=== PATIENT | female | born 1970 | race Caucasian/White ===

== ENCOUNTER 2018-01-21 18:09 | Inpatient (IN) ==
[2018-01-22] MEDS ORDERED: Acetaminophen 325 MG Tablet PO PRN (00:39)
--- NOTE | 2018-01-22 00:49 | P.HPIM ---
History of Present Illness Primary Care Physician: UNKNOWN History of Present Illness: 47 y/o female with a history of HTN presented to the ED with complaints of tarry stools and epigastric pain. Patient states since Friday she has been feeling weak with sob, tarry stools and epigastric pain. She states the pain is a 8/10, burning sensation in her epigastric region with associated nausea and no radiation, worse with food. Patient denies any fevers, chills, cough or sputum production. Review of Systems All other systems reviewed negative except as stated in HPI PMFSH - History History Provided By: Patient - Medical History Medical History: Medical History (Last Reviewed 01/21/18 @ 18:38 by SHALINI Rivas) Hypertension - Surgical History Surgical History: Surgical History (Last Updated 01/21/18 @ 18:25 by Rabia Tatum RN) Hx of appendectomy Hx of tonsillectomy - Family History Family History: Family History (Last Updated 01/22/18 @ 01:12 by HEATHER Xiong) Father Hypertension - Tobacco History Second Hand Smoke Exposure: No Smoking Status: Former smoker Tobacco Type: Cigarettes - Alcohol History How Often Do You Have a Drink Containing Alcohol: Never - Substance Use History Substance History: No History of Abuse Medications and Allergies Active Medications: Active Medications Acetaminophen (Tylenol) 650 mg PO Q4H PRN PRN Reason: Temp > 100.4 Albuterol (Duoneb Neb (Prn)) 1 ampul NEB Q4HR NEB PRN PRN Reason: SHORTNESS OF BREATH Levofloxacin/Dextrose (Levaquin 750 Mg Premix Inj) 150 mls @ 100 mls/hr IV.SIG Q24H ANUJA Sodium Chloride (Ns Inj) 1,000 mls @ 100 mls/hr IV.CONT .Q10H ANUJA Levofloxacin (Levaquin) 750 mg PO DAILY ANUJA Ondansetron HCl (Zofran Inj) 4 mg IV.PUSH Q6H PRN PRN Reason: NAUSEA OR VOMITING Pantoprazole Sodium (Protonix Inj) 40 mg IV.PUSH Q12H ANUJA Allergies Allergy/AdvReac Type Severity Reaction Status Date / Time No Known Allergies Allergy Unverified 01/21/18 18:23 Home Medications Medication Instructions Recorded Confirmed Type triamterene-hydrochlorothiazid 1 cap PO DAILY 01/21/18 01/21/18 History Exam Vital signs: Intake & Output 01/21/18 01/21/18 01/22/18 06:59 18:59 06:59 Weight 80.739 kg Narrative: GENERAL: This is a well-nourished, well-developed patient, in no apparent distress. CARDIOVASCULAR: Regular rate and rhythm without murmurs, gallops, or rubs. RESPIRATORY: Clear to auscultation. Breath sounds equal bilaterally. No wheezes , rales, or rhonchi. GASTROINTESTINAL: Abdomen soft, epigastic tenderness, nondistended. Normal active bowel sounds MUSCULOSKELETAL: Extremities without clubbing, cyanosis, or edema. NEURO: Alert & Oriented x4 to person, place, time, situation. Moves all ext x4 Caprini VTE Risk Assessment Caprini VTE Risk Assessment: No/Low Risk (score <= 1) Caprini Risk Assessment Model: Point Value = 1 Point Value = 2 Point Value = 3 Point Value = 5 Age 41-60 Minor surgery BMI > 25 kg/m2 Swollen legs Varicose veins or History of unexplained or recurrent spontaneous Oral contraceptives or hormone replacement Sepsis (< 1 month) Serious lung disease, including pneumonia (< 1 month) Abnormal pulmonary function Acute myocardial infarction Congestive heart failure (< 1 month) History of inflammatory bowel disease Medical patient at bed rest Age 61-74 Arthroscopic surgery Major open surgery (> 45 min) Laparoscopic surgery (> 45 min) Malignancy Confined to bed (> 72 hours) Immobilizing plaster cast Central venous access Age >= 75 History of VTE Family history of VTE Factor V Leiden Prothrombin [id number] Lupus anticoagulant Anticardiolipin antibodies Elevated serum homocysteine Heparin-induced thrombocytopenia Other congenital or acquired thrombophilia Stroke (< 1 month) Elective arthroplasty Hip, pelvis, or leg fracture Acute spinal cord injury (< 1 month) Prophylaxis Regimen: Total Risk Factor Score Risk Level Prophylaxis Regimen 0-1 Low Early ambulation 2 Moderate Order ONE of the following: *Sequential Compression Device (SCD) *Heparin 5000 units SQ BID 3-4 Higher Order ONE of the following medications: *Heparin 5000 units SQ TID *Enoxaparin/Lovenox 40 mg SQ daily (WT < 150 kg, CrCl > 30 mL/min) *Enoxaparin/Lovenox 30 mg SQ daily (WT < 150 kg, CrCl > 10-29 mL/min) *Enoxaparin/Lovenox 30 mg SQ BID (WT < 150 kg, CrCl > 30 mL/min) AND/OR *Sequential Compression Device (SCD) 5 or more Highest Order ONE of the following medications: *Heparin 5000 units SQ TID (Preferred with Epidurals) *Enoxaparin/Lovenox 40 mg SQ daily (WT < 150 kg, CrCl > 30 mL/min) *Enoxaparin/Lovenox 30 mg SQ daily (WT < 150 kg, CrCl > 10-29 mL/min) *Enoxaparin/Lovenox 30 mg SQ BID (WT < 150 kg, CrCl > 30 mL/min) AND *Sequential Compression Device (SCD) Assessment and Plan - Plan GI bleed, Hemoccult positive HGB 9.8 -Serial H&H -Protonix IV -Consult GI for evaluation -Pain management with IV morphine -IVF Pneumonia, right Abdominal CT reviewed and shows a focal consolidation at the posterior right lower lobe -IV antibiotics Levaquin, transition to PO once no longer npo -Duonebs as needed Hypertension, chronic -Resume home medications, monitor vitals DVT prophylaxis: SCDs Discussed Condition With: patient and rn H&P: Quality - VTE Deep Vein Thrombosis/Pulmonary Embolism Present on Admission: No
[2018-01-22] MEDS: Sod Chloride 0.9% Inj 1,000 ML IV.CONT SCH ×3 (01:47→23:51)
[2018-01-22] MEDS: Morphine Inj 4 MG/ML Vial IV.PUSH PRN ×3 (01:49→20:50)
[2018-01-22 05:17] LABS: Baso % (Auto) 0.3 % (0.0-2.0); Eos # (Auto) 0.1 th/mm3 (0.0-0.4); Eos % (Auto) 1.7 % (0.0-4.0); Hematocrit 21.8 % (35.0-46.0); Hemoglobin 7.6 gm/dL (11.6-15.3); Lymph # (Auto) 2.6 th/mm3 (1.0-4.8); Lymph % (Auto) 41.6 % (9.0-44.0); Mean Corpuscular HGB Conc 34.7 % (32.0-36.0); Mean Corpuscular Hemoglobin 31.4 pg (27.0-34.0); Mean Corpuscular Volume 90.5 fL (80.0-100.0); Mean Platelet Volume 8.2 fL (7.0-11.0); Mono # (Auto) 0.5 th/mm3 (0.0-0.9); Mono % (Auto) 7.4 % (0.0-8.0); Neut # (Auto) 3.1 th/mm3 (1.8-7.7); Platelet Count 197 th/mm3 (150-450); Red Blood Count 2.41 mil/mm3 (4.00-5.30); Red Cell Distribution Width 13.5 % (11.6-17.2); White Blood Count 6.3 th/mm3 (4.0-11.0)
[2018-01-22] MEDS: Pantoprazole Inj 40 MG Vial IV.PUSH SCH ×2 (05:20→17:42)
[2018-01-22 05:44] LABS: Calcium 7.2 mg/dL (8.5-10.1); Carbon Dioxide 24.3 meq/L (21.0-32.0)
[2018-01-22 06:05] LABS: Potassium 2.9 meq/L (3.5-5.1)
[2018-01-22 06:21] LABS: Total Protein 5.4 g/dL (6.4-8.2)
[2018-01-22] MEDS: Potassium Chlor 20 mEq Premix 20 MEQ/100 ML PIGGYBACK IV.SIG SCH ×2 (06:56→10:11)
--- NOTE | 2018-01-22 08:19 | P.CONGI ---
History of Present Illness Consult date: 01/22/18 Consult reason: GIB Chief complaint: GI Bleed, Community Acquired Pneumonia History of Present Illness: This is a 47 yo F with PMH significant for hypertension. Pt presented to the [place] ER yesterday with complaints of black, tarry stools with epigastric pain and nausea. Pt reports she began feeling ill on Friday afternoon when she was at [facility] in [place]. Symptoms began with nausea and an uneasy feeling in her stomach. She also reports significant diaphoresis. She thought she was overheated so she went back to the hotel to cool off, however, she states symptoms did not improve. The next day she began having multiple episodes of diarrhea, states black stools and then for the next two days her stools continued to be black but became more formed. She also reports epigastric burning sensation, states aching and reports a bloated sensation, constant. Denies any emesis. Pt denies history of GIB. Does not take blood thinners. She reports taking 2 Ibuprofen on Friday but denies NSAID use other than occasionally when she has a headache. Denies ETOH and smoking. Has never had EGD or colonoscopy. <Cayla Anaya - Last Filed: 01/22/18 08:09> Review of Systems Constitutional: Reports chills, Reports excessive sweating Cardiovascular: Denies chest pain Respiratory: Denies shortness of breath with activity Gastrointestinal: Reports abdominal pain, Reports black, tarry stools, Reports loose stools, Reports nausea, Denies vomiting, Denies vomiting blood <Cayla Anaya - Last Filed: 01/22/18 08:09> [facility] - History History Provided By: Patient - Medical History Medical History: Medical History (Last Reviewed 01/21/18 @ 18:38 by SHALINI Rivas) Hypertension - Surgical History Surgical History: Surgical History (Last Updated 01/21/18 @ 18:25 by Rabia Tatum RN) Hx of appendectomy Hx of tonsillectomy - Family History Family History: Family History (Last Updated 01/22/18 @ 01:12 by HEATHER Xiong) Father Hypertension - Tobacco History Second Hand Smoke Exposure: No Smoking Status: Former smoker Tobacco Type: Cigarettes - Alcohol History How Often Do You Have a Drink Containing Alcohol: Never - Substance Use History Substance History: No History of Abuse - Travel History Recent Travel in the [place] Within the Last 8 Weeks: No Recent Travel Out of the Country Within the Last 8 Weeks: No <Cayla Anaya - Last Filed: 01/22/18 08:09> - Medical History Medical History: Medical History (Last Reviewed 01/21/18 @ 18:38 by SHALINI Rivas) Hypertension - Surgical History Surgical History: Surgical History (Last Updated 01/21/18 @ 18:25 by Rabia Tatum RN) Hx of appendectomy Hx of tonsillectomy - Family History Family History: Family History (Last Updated 01/22/18 @ 01:12 by HEATHER Xiong) Father Hypertension <Luca Grajeda - Last Filed: 01/22/18 15:21> Medications and Allergies Active Medications: Active Medications Acetaminophen (Tylenol) 650 mg PO Q4H PRN PRN Reason: Temp > 100.4 Albuterol (Duoneb Neb (Prn)) 1 ampul NEB Q4HR NEB PRN PRN Reason: SHORTNESS OF BREATH Levofloxacin/Dextrose (Levaquin 750 Mg Premix Inj) 150 mls @ 100 mls/hr IV.SIG Q24H LIONEL Sodium Chloride (Ns Inj) 1,000 mls @ 100 mls/hr IV.CONT .Q10H LIONEL Last Admin: 01/22/18 01:47 Dose: 100 mls/hr Potassium Chloride (Kcl 20 Meq Premix Inj) 20 meq in 100 mls @ 50 mls/hr IV.SIG Q2H LIONEL Stop: 01/22/18 10:29 Last Admin: 01/22/18 06:56 Dose: 50 mls/hr Morphine Sulfate (Morphine Inj) 2 mg IV.PUSH Q3H PRN PRN Reason: ABDOMINAL PAIN Last Admin: 01/22/18 01:49 Dose: 2 mg Ondansetron HCl (Zofran Inj) 4 mg IV.PUSH Q6H PRN PRN Reason: NAUSEA OR VOMITING Pantoprazole Sodium (Protonix Inj) 40 mg IV.PUSH Q12H LIONEL Last Admin: 01/22/18 05:20 Dose: 40 mg Triamterene/HCTZ (Dyazide 37.5/25 Mg) 1 cap PO DAILY LIONEL <Cayla Anaya - Last Filed: 01/22/18 08:09> Active Medications: Active Medications Acetaminophen (Tylenol) 650 mg PO Q4H PRN PRN Reason: Temp > 100.4 Albuterol (Duoneb Neb (Prn)) 1 ampul NEB Q4HR NEB PRN PRN Reason: SHORTNESS OF BREATH Albuterol (Duoneb Neb (Lionel)) 1 ampul NEB Q6HR WHILE AWAKE NEB [facility] Last Admin: 01/22/18 13:20 Dose: Not Given Chlorhexidine Gluconate (Chlorhexidine 2% Cloth) 3 pack [facility] Stop: 01/25/18 10:38 Last Admin: 01/22/18 12:02 Dose: Not Given Guaifenesin (Mucinex Er) 600 mg PO BID [facility] Last Admin: 01/22/18 13:36 Dose: Not Given Levofloxacin/Dextrose (Levaquin 750 Mg Premix Inj) 150 mls @ 100 mls/hr IV.SIG Q24H [facility] Last Infusion: 01/22/18 10:09 Dose: Infused Sodium Chloride (Ns Inj) 1,000 mls @ 100 mls/hr IV.CONT .Q10H [facility] Last Infusion: 01/22/18 13:35 Dose: 100 mls/hr Lactated Ringer's (Lr 1000 Ml Inj) 1,000 mls @ 30 mls/hr IV.SIG .Q24H [facility] Stop: 01/25/18 10:38 Last Admin: 01/22/18 12:01 Dose: 30 mls/hr Sodium Chloride (Ns Inj) 500 mls @ 30 mls/hr IV.SIG .Q10H [facility] Stop: 01/25/18 10:38 Metoprolol Tartrate (Lopressor) 25 mg PO CENTER REP [facility] Stop: 01/25/18 10:38 Last Admin: 01/22/18 12:02 Dose: Not Given Morphine Sulfate (Morphine Inj) 2 mg IV.PUSH Q3H PRN PRN Reason: ABDOMINAL PAIN Last Admin: 01/22/18 08:35 Dose: 2 mg Ondansetron HCl (Zofran Inj) 4 mg IV.PUSH Q6H PRN PRN Reason: NAUSEA OR VOMITING Pantoprazole Sodium (Protonix Inj) 40 mg IV.PUSH Q12H [facility] Last Admin: 01/22/18 05:20 Dose: 40 mg Polyethylene Glycol/Electrolytes (Colyte Liq) 4,000 ml PO ONCE ONE Stop: 01/22/18 15:11 Povidone Iodine (Betadine 5% Antisepsis Kit) 1 applicatio EACH [facility] Stop: 01/25/18 10:38 Last Admin: 01/22/18 12:02 Dose: Not Given Triamterene/HCTZ (Dyazide 37.5/25 Mg) 1 cap PO DAILY [facility] <Luca Grajeda - Last Filed: 01/22/18 15:21> Allergies Allergy/AdvReac Type Severity Reaction Status Date / Time No Known Allergies Allergy Unverified 01/21/18 18:23 Home Medications Medication Instructions Recorded Confirmed Type triamterene-hydrochlorothiazid 1 cap PO DAILY 01/21/18 01/21/18 History Exam Vital signs: Vital Signs 01/22/18 03:17 01/22/18 04:00 01/22/18 08:03 Temperature 98.6 F Pulse Rate 71 77 Respiratory Rate 15 19 Blood Pressure 91/54 L Pulse Oximetry 93 L Intake & Output 01/21/18 01/22/18 01/22/18 18:59 06:59 18:59 Weight 80.739 kg Other: Date of Last Bowel Movement 01/21/18 Weight On Admission 80.739 kg - Constitutional no acute distress - Routine HEENT Exam Head: Present: normocephalic, atraumatic - Routine Respiratory Exam Absent: accessory muscle use - Routine Cardiovascular Exam Present: RRR - Routine Abdominal Exam Present: soft, normoactive bowel sounds, tenderness (epigastric tenderness ). Absent: distended - Routine Skin Exam Present: dry, warm - Routine Neurological Exam Present: alert, oriented X3 <Cayla Anaya - Last Filed: 01/22/18 08:09> Vital signs: Vital Signs 01/22/18 03:17 01/22/18 04:00 01/22/18 08:00 Temperature 98.6 F 98.6 F Pulse Rate 71 68 Respiratory Rate 15 19 16 Blood Pressure 91/54 L 99/64 L Pulse Oximetry 93 L 94 L 01/22/18 08:03 01/22/18 14:06 01/22/18 14:20 Temperature 99 F 98.6 F Pulse Rate 77 75 73 Respiratory Rate 16 16 Blood Pressure 109/67 111/62 Pulse Oximetry 96 96 01/22/18 14:21 Temperature 98.6 F Pulse Rate Respiratory Rate 18 Blood Pressure 112/63 Pulse Oximetry 100 Intake & Output 01/21/18 01/22/18 01/22/18 18:59 06:59 18:59 Intake Total 250 / 250 Balance 250 / 250 Weight 80.739 kg Intake: IV 250 / 250 NS Inj 1,000 ML @ 100 mls/hr IV 0 / 0 .CONT .Q10H LIONEL Rx#:[id number] Levaquin 750 mg Premix Inj 150 150 / 150 ML @ 100 mls/hr IV.SIG Q24H LIONEL Rx#:[id number] KCl 20 mEq Premix Inj 20 meq In 100 / 100 100 ml @ 50 mls/hr IV.SIG Q2H LIONEL Rx#:[id number] Intake (Blood Product) Amt 0 / 0 Rbc As-3 Leukoreduced Unit 0 / 0 [id number] Other: Date of Last Bowel Movement 01/21/18 Weight On Admission 80.739 kg <Luca Grajeda - Last Filed: 01/22/18 15:21> Results - Labs CBC & Chem 7: 01/22/18 04:10 01/22/18 04:10 Labs: Laboratory Results - last 24 hr 01/22/18 01/22/18 04:10 04:10 WBC 6.3 RBC 2.41 L Hgb 7.6 L D Hct 21.8 L MCV 90.5 MCH 31.4 MCHC 34.7 RDW 13.5 Plt Count 197 MPV 8.2 Neut % (Auto) 49.0 Lymph % (Auto) 41.6 [place] % (Auto) 7.4 Eos % (Auto) 1.7 Baso % (Auto) 0.3 Neut # (Auto) 3.1 Lymph # (Auto) 2.6 [place] # (Auto) 0.5 Eos # (Auto) 0.1 Baso # (Auto) 0.0 WBC Differential . Differential Comment Auto diff final Sodium 142 Potassium 2.9 L* Chloride 110 H Carbon Dioxide 24.3 Anion Gap 8 BUN 14 Creatinine 0.77 Estimated GFR 81 L Random Glucose 83 Calcium 7.2 L* D Prot Corrected Calcium 8.1 L Total Protein 5.4 L D <Cayla Anaya - Last Filed: 01/22/18 08:09> - Labs CBC & Chem 7: 01/22/18 04:10 01/22/18 13:19 Labs: Laboratory Results - last 24 hr 01/22/18 01/22/18 01/22/18 04:10 04:10 13:19 WBC 6.3 RBC 2.41 L Hgb 7.6 L D Hct 21.8 L MCV 90.5 MCH 31.4 MCHC 34.7 RDW 13.5 Plt Count 197 MPV 8.2 Neut % (Auto) 49.0 Lymph % (Auto) 41.6 [place] % (Auto) 7.4 Eos % (Auto) 1.7 Baso % (Auto) 0.3 Neut # (Auto) 3.1 Lymph # (Auto) 2.6 [place] # (Auto) 0.5 Eos # (Auto) 0.1 Baso # (Auto) 0.0 WBC Differential . Differential Comment Auto diff final Sodium 142 Potassium 2.9 L* Chloride 110 H Carbon Dioxide 24.3 Anion Gap 8 BUN 14 Creatinine 0.77 Estimated GFR 81 L Random Glucose 83 Calcium 7.2 L* D Prot Corrected Calcium 8.1 L Total Protein 5.4 L D TSH Free T4 MTS Gel Crossmatch See Detail 01/22/18 13:19 WBC RBC Hgb Hct MCV MCH MCHC RDW Plt Count MPV Neut % (Auto) Lymph % (Auto) [place] % (Auto) Eos % (Auto) Baso % (Auto) Neut # (Auto) Lymph # (Auto) [place] # (Auto) Eos # (Auto) Baso # (Auto) WBC Differential Differential Comment Sodium 142 Potassium 3.7 D Chloride 112 H Carbon Dioxide 21.2 Anion Gap 9 BUN 11 Creatinine 0.62 Estimated GFR Greater than 89 Random Glucose 85 Calcium 7.6 L Prot Corrected Calcium Total Protein TSH 1.260 Free T4 1.10 MTS Gel Crossmatch <Luca Grajeda - Last Filed: 01/22/18 15:21> Assessment and Plan - Plan Assessment: - Anemia secondary to acute GI blood loss 7.6/21.8, normocytic Pt reports symptoms began on Friday afternoon with nausea and upset stomach. Denies emesis. Began having black, tarry stools on Friday. Initially was diarrhea then became more formed on Friday and Friday. Last BM was yesterday morning. Denies history of GIB. Took 2 Excedrin on Friday but denies frequent NSAID use. Denies ETOH and smoking. Does not take blood thinners. Denies family history of GI issues. Has never had EGD or colonoscopy. Ct abdomen and pelvis WO IV contrast reveals no acute abdominal abnormalities Plan: EGD today Obtain consent Keep NPO Protonix Monitor H/H Electrolyte replacement per primary team Further recommendations to follow Pt has been seen and examined by myself and Dr. Grajeda and this note is written on his behalf <Cayla Anaya - Last Filed: 01/22/18 08:09> - Plan Seen and examined with [employer], EGd planned today, if -ve colonoscopy tomorrow. NPO for now, transfuse 2 units of PRBC. Thank you The exam, history, and the medical decision-making described in the above note were completed with the assistance of the mid-level provider. I reviewed and agree with the findings presented. I attest that I had a buan-[id number] encounter with the patient on the same day, and personally performed and documented my assessment and findings in the medical record. <Luca Grajeda - Last Filed: 01/22/18 15:21>
[2018-01-22] MEDS ORDERED: levoFLOXacin 750 MG Tablet PO SCH (09:00)
[2018-01-22] MEDS ORDERED: Chlorhexidine Gluconate 2% 1 Pack (2 Cloths) TOPICAL SCH (10:45)
[2018-01-22] MEDS ORDERED: Metoprolol Tartrate 25 MG Tablet PO SCH (10:45)
[2018-01-22] MEDS ORDERED: Sodium Chlor 0.9% Inj 500 ML IV.SIG SCH (11:00)
--- NOTE | 2018-01-22 11:31 | P.PNIM ---
Subjective Interval history: 47 y/o female with a history of HTN presented to the ED with complaints of tarry stools and epigastric pain. Patient states since Friday she has been feeling weak with sob, tarry stools and epigastric pain. She states the pain is a 8/10, burning sensation in her epigastric region with associated nausea and no radiation, worse with food. Patient denies any fevers, chills, cough or sputum production. 01-22 PATIENT TO HAVE EGD TODAY CONTINUE ANTIBIOTICS REGARDING PNEUMONIA HOPEFULLY HOME TOMORROW ON PO ANTIBIOTICS Physical Exam Vital signs: Vital Signs 01/22/18 03:17 01/22/18 04:00 01/22/18 08:00 Temperature 98.6 F 98.6 F Pulse Rate 71 68 Respiratory Rate 15 19 16 Blood Pressure 91/54 L 99/64 L Pulse Oximetry 93 L 94 L 01/22/18 08:03 Temperature Pulse Rate 77 Respiratory Rate Blood Pressure Pulse Oximetry Intake & Output 01/21/18 01/22/18 01/22/18 18:59 06:59 18:59 Intake Total 250 / 250 Balance 250 / 250 Weight 80.739 kg Intake: IV 250 / 250 Levaquin 750 mg Premix Inj 150 150 / 150 ML @ 100 mls/hr IV.SIG Q24H ANUJA Rx#:[id number] KCl 20 mEq Premix Inj 20 meq In 100 / 100 100 ml @ 50 mls/hr IV.SIG Q2H ANUJA Rx#:[id number] Other: Date of Last Bowel Movement 01/21/18 Weight On Admission 80.739 kg Narrative: GENERAL: Awake alert and oriented 3 talkative and cooperative SKIN: Warm and dry. HEAD: Atraumatic. Normocephalic. EYES: Pupils equal and round. No scleral icterus. No injection or drainage. EOMI ENT: No nasal bleeding or discharge. Mucous membranes pink and moist. Tongue is midline NECK: Trachea midline. No JVD. Neck is supple CARDIOVASCULAR: Regular rate and rhythm. S1-S2 no S3 or S4 RESPIRATORY: No accessory muscle use. Clear to auscultation. Breath sounds equal bilaterally. GASTROINTESTINAL: Abdomen soft, non-tender, nondistended. Hepatic and splenic margins not palpable. Mild midepigastric tenderness MUSCULOSKELETAL: Extremities without clubbing, cyanosis, or edema. No obvious deformities. NEUROLOGICAL: Awake and alert. No obvious cranial nerve deficits. Motor grossly within normal limits. Five out of 5 muscle strength in the arms and legs. Normal speech. PSYCHIATRIC: Appropriate mood and affect; insight and judgment normal. Results - Labs CBC & Chem 7: 01/22/18 04:10 01/22/18 04:10 Laboratory Results - last 24 hr 01/22/18 01/22/18 04:10 04:10 WBC 6.3 RBC 2.41 L Hgb 7.6 L D Hct 21.8 L MCV 90.5 MCH 31.4 MCHC 34.7 RDW 13.5 Plt Count 197 MPV 8.2 Neut % (Auto) 49.0 Lymph % (Auto) 41.6 Luce % (Auto) 7.4 Eos % (Auto) 1.7 Baso % (Auto) 0.3 Neut # (Auto) 3.1 Lymph # (Auto) 2.6 Luce # (Auto) 0.5 Eos # (Auto) 0.1 Baso # (Auto) 0.0 WBC Differential . Differential Comment Auto diff final Sodium 142 Potassium 2.9 L* Chloride 110 H Carbon Dioxide 24.3 Anion Gap 8 BUN 14 Creatinine 0.77 Estimated GFR 81 L Random Glucose 83 Calcium 7.2 L* D Prot Corrected Calcium 8.1 L Total Protein 5.4 L D - Imaging INDICATIONS: Pneumonia. CLINICAL DATA: This is the patient's initial encounter. Patient reports that signs and symptoms have been present for 1 day and indicates a pain score of 4/ 10. MEDICAL/SURGICAL HISTORY: Hypertension. None. COMPARISON: No prior exams available for comparison. FINDINGS: A single AP view of the chest demonstrates the lungs to be symmetrically aerated without evidence of mass, infiltrate or effusion. The cardiomediastinal contours are unremarkable. Osseous structures are intact. CONCLUSION: No acute cardiopulmonary process. Electronically signed by: Bairon Cruz MD 01/21/2018 9:05 PM EDT EXAM DATE: 01/21/2018 8:01 PM EDT AGE/SEX: 47 years / Female INDICATIONS: Epigastric pain. CLINICAL DATA: This is the patient's initial encounter. Patient reports that signs and symptoms have been present for 4 - 6 days and indicates a pain score of 8/10. MEDICAL/SURGICAL HISTORY: Hypertension. Appendectomy. RADIATION DOSE: 15.54 CTDI (mGy) COMPARISON: No prior exams available for comparison. TECHNIQUE: Multiple contiguous axial images were obtained through the abdomen. Images were obtained using multiple row detector helical technique. Using automated exposure control and adjustment of the mA and/or kV according to patient size, radiation dose was kept as low as reasonably achievable to obtain optimal diagnostic quality images. DICOM format image data is available electronically for review and comparison. FINDINGS: Lower Lungs: There is a focal or consolidation at the posterior right lower lobe. Liver: The liver has a homogeneous density without space-occupying lesion. There is no dilation of the biliary tree. Spleen: Homogeneous density without enlargement. Pancreas: Unremarkable without mass or calcification. Kidneys: Normal in size and shape. No evidence of mass or hydronephrosis. Adrenal Glands: Unremarkable. Aorta: Atherosclerotic calcifications are seen. No aneurysm is present. Bowel/Mesentery: The bowel loops are grossly unremarkable. The cecum and sigmoid colon have a normal configuration. Clips are seen in the right lower quadrant. Abdominal Wall: Intact. Retroperitoneum: No evidence of adenopathy in the retrocrural, para-aortic, or deep pelvic regions. Bladder: Contours are smooth. Reproductive Organs: No abnormal masses or calcifications seen. The right ovary appears mildly prominent but within normal limits for size given the patient's age. Inguinal: The inguinal region is unremarkable without evidence of adenopathy. Bony Structures: Unremarkable. CONCLUSION: 1. Right lower lobe consolidation. 2. No acute intra-abdominal abnormality is seen. Assessment and Plan - Plan GI bleed, Hemoccult positive HGB 9.8 -Serial H&H -Protonix IV -Consult GI for evaluation -Pain management with IV morphine -IVF Pneumonia, right Abdominal CT reviewed and shows a focal consolidation at the posterior right lower lobe -IV antibiotics Levaquin, transition to PO once no longer npo -Duonebs as needed Hypertension, chronic -Resume home medications, monitor vitals Add Mucinex and DuoNeb's DVT prophylaxis: SCDs no Lovenox due to GI bleeding Code Status: Full code Discussed Condition With: RN and patient and case management Discharge Planning: Pending improvement hopefully home in the next 24-48
[2018-01-22] MEDS: guaiFENesin 600 MG ER Tablet PO SCH ×2 (13:36→20:50)
[2018-01-22 14:05] LABS: Anion Gap 9 meq/L (5-15); Blood Urea Nitrogen 11 mg/dL (7-18); Calcium 7.6 mg/dL (8.5-10.1); Carbon Dioxide 21.2 meq/L (21.0-32.0); Chloride 112 meq/L (98-107); Glomerular Filtration Rate Greater Than 89 mL/min (>89); Glucose,Random 85 mg/dL (74-106); Potassium 3.7 meq/L (3.5-5.1); Sodium 142 meq/L (136-145)
[2018-01-22] MEDS ORDERED: Lidocaine PF 1% Inj 5 ML Syringe INFILTRATN ONE (15:03)
--- NOTE | 2018-01-22 15:15 | GIPROC ---
[facility] [address] [facility]. [facility], [address] EGD PROCEDURE REPORT EXAM DATE: 01/22/2018 PATIENT NAME: Gillian Taylor MR #: [id number] BIRTHDATE: 1970 ATTENDING: Luca Grajeda MD ORDER #: [id number] RUBY DEVELOPER: Loretta Casas and Inna Guadarrama STATUS: inpatient INDICATIONS: The patient is a 47 yr old female here for an EGD due to iron deficiency anemia and melena PROCEDURE PERFORMED: EGD w/ biopsy MEDICATIONS: None and Per Anesthesia. TOPICAL ANESTHETIC: CONSENT: The patient understands the risks and benefits of the procedure and understands that these risks include, but are not limited to: sedation, allergic reaction, infection, perforation and/or bleeding. Alternative means of evaluation and treatment include, among others: physical exam, x-rays, and/or surgical intervention. The patient elects to proceed with this endoscopic procedure. medical equipment was checked for proper function. Hand hygiene and appropriate measures for infection prevention was taken. After the risks, benefits and alternatives of the procedure were thoroughly explained, Informed consent was verified, confirmed and timeout was successfully executed by the treatment team. The patient was anesthetized with topical anesthesia and the Pentax [id number] endoscope was introduced through the mouth and advanced to the second portion of the duodenum. Retroflexed views revealed no abnormalities The gastroscope was then slowly withdrawn and removed. ESOPHAGUS: The mucosa of the esophagus appeared normal. STOMACH: There was erythematous moderate gastritis in the gastric antrum. A biopsy was performed using cold forceps. Sample sent for histology. DUODENUM: Mild duodenal inflammation was found in the duodenal bulb. ADVERSE EVENTS: There were no complications. IMPRESSIONS: 1. The esophagus appeared normal 2. There was erythematous gastritis in the gastric antrum; biopsy was performed 3. Duodenal inflammation was found in the duodenal bulb 4. Retroflexed views revealed no abnormalities RECOMMENDATIONS: 1. Await biopsy results. Biopsy results will not be ready for 7-10 days. If you don't hear from us in two weeks, call our office for biopsy results. 2. Anti-reflux regimen 3. Continue PPI 4. Avoid NSAIDS 5. Colonoscopy PATIENT CONDITION: stable DISPOSITION: Inpatient REPEAT EXAM: Return 3 years EGD pending biopsy results Luca Grajeda MD eSigned: Luca Grajeda MD 01/22/2018 3:15 PM cc: PATIENT NAME: Gillian Taylor MR#: [id number]
[2018-01-22] MEDS ORDERED: PEG 3350/E-Lyte Soln 4000 ML Bottle PO ONE (16:00)
[2018-01-22 17:41] LABS: Hemoglobin A1c 5.4 % (4.3-6.0)
[2018-01-23 05:25] LABS: Baso % (Auto) 0.3 % (0.0-2.0); Eos # (Auto) 0.1 th/mm3 (0.0-0.4); Eos % (Auto) 1.4 % (0.0-4.0); Hematocrit 27.3 % (35.0-46.0); Hemoglobin 9.6 gm/dL (11.6-15.3); Lymph # (Auto) 2.6 th/mm3 (1.0-4.8); Lymph % (Auto) 34.4 % (9.0-44.0); Mean Corpuscular HGB Conc 35.3 % (32.0-36.0); Mean Corpuscular Hemoglobin 32.3 pg (27.0-34.0); Mean Corpuscular Volume 91.3 fL (80.0-100.0); Mean Platelet Volume 7.8 fL (7.0-11.0); Mono # (Auto) 0.6 th/mm3 (0.0-0.9); Mono % (Auto) 8.3 % (0.0-8.0); Neut # (Auto) 4.1 th/mm3 (1.8-7.7); Neut % (Auto) 55.6 % (16.0-70.0); Platelet Count 213 th/mm3 (150-450); Red Blood Count 2.98 mil/mm3 (4.00-5.30); Red Cell Distribution Width 13.9 % (11.6-17.2); White Blood Count 7.4 th/mm3 (4.0-11.0)
[2018-01-23] MEDS: Pantoprazole Inj 40 MG Vial IV.PUSH SCH (05:44)
[2018-01-23 05:53] LABS: Anion Gap 10 meq/L (5-15); Aspartate Aminotransferase 12 U/L (15-37); Blood Urea Nitrogen 8 mg/dL (7-18); Calcium 7.6 mg/dL (8.5-10.1); Carbon Dioxide 23.4 meq/L (21.0-32.0); Chloride 111 meq/L (98-107); Glomerular Filtration Rate Greater Than 89 mL/min (>89); Magnesium 2.2 mg/dL (1.5-2.5); Sodium 144 meq/L (136-145)
[2018-01-23 06:01] LABS: Alanine Aminotransferase 13 U/L (10-53); Alkaline Phosphatase 40 U/L (45-117); Glucose,Random 85 mg/dL (74-106); Phosphorus 2.2 mg/dL (2.5-4.9); Total Protein 5.7 g/dL (6.4-8.2)
[2018-01-23] MEDS: Sod Chloride 0.9% Inj 1,000 ML IV.CONT SCH (06:34)
[2018-01-23] MEDS ORDERED: Potassium Chlor 20 mEq Premix 20 MEQ/100 ML PIGGYBACK IV.SIG ONE (08:34)
--- NOTE | 2018-01-23 11:38 | GIPROC ---
[facility] [address] [facility]. [facility], [address] COLONOSCOPY PROCEDURE REPORT EXAM DATE: 01/23/2018 PATIENT NAME: Gillian Taylor MR #: [id number] BIRTHDATE: 1970 ENDOSCOPIST: Luca Grajeda MD ORDER #: [id number] MEDICAL UNDERWRITER: Sophie Montalvo and Jaja Boggs STATUS: inpatient INDICATIONS: The patient is a 47 yr old female here for a colonoscopy due to iron deficiency anemia PROCEDURE PERFORMED: Colonoscopy with biopsy MEDICATIONS: None and Per Anesthesia. PREP QUALITY: The [place] Bowel Prep Score was Right colon 3, Mid colon 2, and Left colon 2. Total = 7. PREP TYPE:GoLytely ESTIMATED BLOOD LOSS: None CONSENT: The patient understands the risks and benefits of the procedure and understands that these risks include, but are not limited to: sedation, allergic reaction, infection, perforation and/or bleeding. Alternative means of evaluation and treatment include, among others: physical exam, x-rays, and/or surgical intervention. The patient elects to proceed with this endoscopic procedure. medical equipment was checked for proper function. Hand hygiene and appropriate measures for infection prevention was taken. After the risks, benefits and alternatives of the procedure were thoroughly explained, Informed consent was verified, confirmed and timeout was successfully executed by the treatment team. A digital exam revealed external hemorrhoids The Pentax EC-[id number] endoscope was introduced through the anus and advanced to the cecum, which was identified by both the appendix and ileocecal valve. The instrument was then slowly withdrawn as the colon was fully examined. COLON FINDINGS: A polypoid shaped sessile polyp ranging between 3-5mm in size was found in the sigmoid colon. A polypectomy was performed with cold forceps. The resection was complete and the polyp tissue was completely retrieved. Retroflexed views revealed internal hemorrhoids and Retroflexed views revealed medium internal hemorrhoids The scope was then completely withdrawn from the patient and the procedure terminated. PROCEDURE WITHDRAWAL TIME:6minutes ADVERSE EVENTS: There were no complications. IMPRESSIONS: 1. A sessile polyp ranging between 3-5mm in size was found in the sigmoid colon; polypectomy was performed with cold forceps 2. Retroflexed views revealed internal hemorrhoids 3. Retroflexed views revealed medium internal hemorrhoids 4. Revealed external hemorrhoids RECOMMENDATIONS: 1. Await biopsy results. Biopsy results will not be ready for 7-10 days. If you don't hear from us in two weeks, call our office for results. 2. Continue surveillance 3. Yearly hemoccult RECALL: Return 5 years Colonoscopy Luca Grajeda MD eSigned: Luca Grajeda MD 01/23/2018 11:38 AM cc: PATIENT NAME: Gillian Taylor MR#: [id number]
[2018-01-23] MEDS: guaiFENesin 600 MG ER Tablet PO SCH (13:26)
--- NOTE | 2018-01-23 15:11 | P.PNIM ---
Subjective Interval history: 47 y/o female with a history of HTN presented to the ED with complaints of tarry stools and epigastric pain. Patient states since Friday she has been feeling weak with sob, tarry stools and epigastric pain. She states the pain is a 8/10, burning sensation in her epigastric region with associated nausea and no radiation, worse with food. Patient denies any fevers, chills, cough or sputum production. 01-22 PATIENT TO HAVE EGD TODAY CONTINUE ANTIBIOTICS REGARDING PNEUMONIA HOPEFULLY HOME TOMORROW ON PO ANTIBIOTICS 01-23 HAD COLONOSCOPY POTASSIUM IS LOW WILL REPLACE DC TO HOME ON PO MEDS DW RN AND PT AND CM DC ON PO MEDS FOLLOW UP PCP IN 1 WEEK Physical Exam Vital signs: Vital Signs 01/22/18 15:22 01/22/18 15:38 01/22/18 16:47 Temperature 98.4 F 98.4 F 98 F Pulse Rate 78 74 72 Respiratory Rate 16 16 20 Blood Pressure 101/62 94/61 L 107/63 Pulse Oximetry 98 98 99 01/22/18 17:15 01/22/18 17:32 01/22/18 20:00 Temperature 98.9 F 98.6 F Pulse Rate 82 Respiratory Rate 16 17 18 Blood Pressure 114/76 142/83 H Pulse Oximetry 97 01/22/18 20:23 01/22/18 23:32 01/23/18 04:00 Temperature 98.7 F 98.8 F Pulse Rate 80 78 76 Respiratory Rate 20 18 18 Blood Pressure 173/98 H 123/80 Pulse Oximetry 99 97 01/23/18 07:52 01/23/18 12:04 Temperature 98.8 F 98.7 F Pulse Rate 78 69 Respiratory Rate 16 18 Blood Pressure 128/75 121/65 Pulse Oximetry 95 98 Intake & Output 01/22/18 01/23/18 01/23/18 18:59 06:59 18:59 Intake Total 350 / 350 1400 / 1400 200 / 200 Balance 350 / 350 1400 / 1400 200 / 200 Intake: IV 350 / 350 1000 / 1000 200 / 200 NS Inj 1,000 ML @ 100 mls/hr IV 0 / 0 1000 / 1000 .CONT .Q10H [facility] Rx#:[id number] Ofirmev Inj 1,000 mg In 100 ml 100 / 100 @ 0 mls/hr IV.SIG .STK-MED ONE Rx#:[id number] LR 1000 mL Inj 1,000 ML @ 30 0 / 0 100 / 100 mls/hr IV.SIG .Q24H [facility] Rx#: [id number] Levaquin 750 mg Premix Inj 150 150 / 150 ML @ 100 mls/hr IV.SIG Q24H [facility] Rx#:[id number] KCl 20 mEq Premix Inj 20 meq In 200 / 200 100 ml @ 50 mls/hr IV.SIG Q2H [facility] Rx#:[id number] Intake (Blood Product) Amt 0 / 0 400 / 400 Rbc As-3 Leukoreduced Unit 0 / 0 400 / 400 [id number] Rbc As-3 Leukoreduced Unit 0 / 0 [id number] Other: # Voids 3 Date of Last Bowel Movement 01/22/18 # Bowel Movements 6 Narrative: GENERAL: Awake alert and oriented 3 talkative and cooperative SKIN: Warm and dry. HEAD: Atraumatic. Normocephalic. EYES: Pupils equal and round. No scleral icterus. No injection or drainage. EOMI ENT: No nasal bleeding or discharge. Mucous membranes pink and moist. Tongue is midline NECK: Trachea midline. No JVD. Neck is supple CARDIOVASCULAR: Regular rate and rhythm. S1-S2 no S3 or S4 RESPIRATORY: No accessory muscle use. Clear to auscultation. Breath sounds equal bilaterally. GASTROINTESTINAL: Abdomen soft, non-tender, nondistended. Hepatic and splenic margins not palpable. Mild midepigastric tenderness MUSCULOSKELETAL: Extremities without clubbing, cyanosis, or edema. No obvious deformities. NEUROLOGICAL: Awake and alert. No obvious cranial nerve deficits. Motor grossly within normal limits. Five out of 5 muscle strength in the arms and legs. Normal speech. PSYCHIATRIC: Appropriate mood and affect; insight and judgment normal. Results - Labs CBC & Chem 7: 01/23/18 04:58 01/23/18 04:58 Laboratory Results - last 24 hr 01/22/18 01/22/18 01/23/18 04:10 13:19 04:58 WBC 7.4 RBC 2.98 L Hgb 9.6 L D Hct 27.3 L MCV 91.3 MCH 32.3 MCHC 35.3 RDW 13.9 Plt Count 213 MPV 7.8 Neut % (Auto) 55.6 Lymph % (Auto) 34.4 [place] % (Auto) 8.3 H Eos % (Auto) 1.4 Baso % (Auto) 0.3 Neut # (Auto) 4.1 Lymph # (Auto) 2.6 [place] # (Auto) 0.6 Eos # (Auto) 0.1 Baso # (Auto) 0.0 WBC Differential . Differential Comment Auto diff final Sodium Potassium Chloride Carbon Dioxide Anion Gap BUN Creatinine Estimated GFR Random Glucose Hemoglobin A1c 5.4 Calcium Phosphorus Magnesium Total Bilirubin AST ALT Alkaline Phosphatase Total Protein Albumin MTS Gel Crossmatch See Detail 01/23/18 04:58 WBC RBC Hgb Hct MCV MCH MCHC RDW Plt Count MPV Neut % (Auto) Lymph % (Auto) [place] % (Auto) Eos % (Auto) Baso % (Auto) Neut # (Auto) Lymph # (Auto) [place] # (Auto) Eos # (Auto) Baso # (Auto) WBC Differential Differential Comment Sodium 144 Potassium 3.0 L Chloride 111 H Carbon Dioxide 23.4 Anion Gap 10 BUN 8 Creatinine 0.68 Estimated GFR Greater than 89 Random Glucose 85 Hemoglobin A1c Calcium 7.6 L Phosphorus 2.2 L Magnesium 2.2 Total Bilirubin 0.8 AST 12 L ALT 13 Alkaline Phosphatase 40 L Total Protein 5.7 L Albumin 3.0 L D MTS Gel Crossmatch - Procedures EGD 8-30 GASTRITIS PROTONIX COLONOSCOPY PROCEDURE REPORT EXAM DATE: 01/23/2018 PATIENT NAME: Gillian Taylor MR #: [id number] BIRTHDATE: 1970 ENDOSCOPIST: Luca Grajeda MD ORDER #: [id number] BLEACH BOILER PACKER: Sophie Montalvo and Jaja Boggs STATUS: inpatient INDICATIONS: The patient is a 47 yr old female here for a colonoscopy due to iron deficiency anemia PROCEDURE PERFORMED: Colonoscopy with biopsy MEDICATIONS: None and Per Anesthesia. PREP QUALITY: The [place] Bowel Prep Score was Right colon 3, Mid colon 2, and Left colon 2. Total = 7. PREP TYPE:GoLytely ESTIMATED BLOOD LOSS: None CONSENT: The patient understands the risks and benefits of the procedure and understands that these risks include, but are not limited to: sedation, allergic reaction, infection, perforation and/or bleeding. Alternative means of evaluation and treatment include, among others: physical exam, x-rays, and/or surgical intervention. The patient elects to proceed with this endoscopic procedure. medical equipment was checked for proper function. Hand hygiene and appropriate measures for infection prevention was taken. After the risks, benefits and alternatives of the procedure were thoroughly explained, Informed consent was verified, confirmed and timeout was successfully executed by the treatment team. A digital exam revealed external hemorrhoids The Pentax EC-[id number] endoscope was introduced through the anus and advanced to the cecum, which was identified by both the appendix and ileocecal valve. The instrument was then slowly withdrawn as the colon was fully examined. COLON FINDINGS: A polypoid shaped sessile polyp ranging between 3-5mm in size was found in the sigmoid colon. A polypectomy was performed with cold forceps. The resection was complete and the polyp tissue was completely retrieved. Retroflexed views revealed internal hemorrhoids and Retroflexed views revealed medium internal hemorrhoids The scope was then completely withdrawn from the patient and the procedure terminated. PROCEDURE WITHDRAWAL TIME:6minutes ADVERSE EVENTS: There were no complications. IMPRESSIONS: 1. A sessile polyp ranging between 3-5mm in size was found in the sigmoid colon; polypectomy was performed with cold forceps 2. Retroflexed views revealed internal hemorrhoids 3. Retroflexed views revealed medium internal hemorrhoids 4. Revealed external hemorrhoids RECOMMENDATIONS: 1. Await biopsy results. Biopsy results will not be ready for 7-10 days. If you don't hear from us in two weeks, call our office for results. 2. Continue surveillance 3. Yearly hemoccult RECALL: Return 5 years Colonoscopy Assessment and Plan - Plan GI bleed, Hemoccult positive HGB 9.8 -Serial H&H -Protonix IV -Consult GI for evaluation -Pain management with IV morphine -IVF HAD TRANSFUSION HAD EGD AND COLONOSCOPY Pneumonia, right Abdominal CT reviewed and shows a focal consolidation at the posterior right lower lobe -IV antibiotics Levaquin, transition to PO once no longer npo -Duonebs as needed Hypertension, chronic -Resume home medications, monitor vitals Add Mucinex and DuoNeb's DVT prophylaxis: SCDs no Lovenox due to GI bleeding ANEMIA IS STABLE AFTER TRANSFUSION DC TO HOME TODAY Code Status: FULL CODE Discussed Condition With: RN AND PT AND CM Discharge Planning: DC TO HOME TODAY
--- NOTE | 2018-01-23 15:22 | P.DS ---
Date of admission: 01/22/18 14:04 Primary care physician: UNKNOWN Attending physician on discharge: Ki Mott Anticipated date of discharge: 01/23/18 Brief History from admission: 47 y/o female with a history of HTN presented to the ED with complaints of tarry stools and epigastric pain. Patient states since Friday she has been feeling weak with sob, tarry stools and epigastric pain. She states the pain is a 8/10, burning sensation in her epigastric region with associated nausea and no radiation, worse with food. Patient denies any fevers, chills, cough or sputum production. DS: Diagnosis - Discharge Diagnosis (1) Pneumonia Status: Acute (2) Anemia Status: Acute (3) Gastritis Status: Acute DS: Medications - Discharge Medications Prescriptions: albuterol sulfate 2 puff INHALATION Q6H #1 inh guaifenesin [Mucinex] 600 mg PO BID #60 tab levofloxacin [Levaquin] 750 mg PO DAILY #5 tab pantoprazole [Protonix] 40 mg PO BID #60 tab potassium chloride 20 meq PO DAILY #30 tab triamterene-hydrochlorothiazid 1 cap PO DAILY #30 cap DS: Summary Hospital Course: 47 y/o female with a history of HTN presented to the ED with complaints of tarry stools and epigastric pain. Patient states since Friday she has been feeling weak with sob, tarry stools and epigastric pain. She states the pain is a 8/10, burning sensation in her epigastric region with associated nausea and no radiation, worse with food. Patient denies any fevers, chills, cough or sputum production. 8 PATIENT TO HAVE EGD TODAY CONTINUE ANTIBIOTICS REGARDING PNEUMONIA HOPEFULLY HOME TOMORROW ON PO ANTIBIOTICS 01-23 HAD COLONOSCOPY POTASSIUM IS LOW WILL REPLACE DC TO HOME ON PO MEDS DW RN AND PT AND CM DC ON PO MEDS FOLLOW UP PCP IN 1 WEEK - Time Spent with Patient Total time spent providing and/or coordinating discharge services: Greater than 30 minutes - Quality: VTE Deep Vein Thrombosis/Pulmonary Embolism Present on Admission: No Exam Vital signs: Vital Signs 01/22/18 15:22 01/22/18 15:38 01/22/18 16:47 Temperature 98.4 F 98.4 F 98 F Pulse Rate 78 74 72 Respiratory Rate 16 16 20 Blood Pressure 101/62 94/61 L 107/63 Pulse Oximetry 98 98 99 08/30/18 17:15 01/22/18 17:32 01/22/18 20:00 Temperature 98.9 F 98.6 F Pulse Rate 82 Respiratory Rate 16 17 18 Blood Pressure 114/76 142/83 H Pulse Oximetry 97 01/22/18 20:23 01/22/18 23:32 01/23/18 04:00 Temperature 98.7 F 98.8 F Pulse Rate 80 78 76 Respiratory Rate 20 18 18 Blood Pressure 173/98 H 123/80 Pulse Oximetry 99 97 01/23/18 07:52 01/23/18 12:04 Temperature 98.8 F 98.7 F Pulse Rate 78 69 Respiratory Rate 16 18 Blood Pressure 128/75 121/65 Pulse Oximetry 95 98 Intake & Output 01/22/18 01/23/18 01/23/18 18:59 06:59 18:59 Intake Total 350 / 350 1400 / 1400 200 / 200 Balance 350 / 350 1400 / 1400 200 / 200 Intake: IV 350 / 350 1000 / 1000 200 / 200 NS Inj 1,000 ML @ 100 mls/hr IV 0 / 0 1000 / 1000 .CONT .Q10H [facility] Rx#:[id number] Ofirmev Inj 1,000 mg In 100 ml 100 / 100 @ 0 mls/hr IV.SIG .STK-MED ONE Rx#:[id number] LR 1000 mL Inj 1,000 ML @ 30 0 / 0 100 / 100 mls/hr IV.SIG .Q24H [facility] Rx#: [id number] Levaquin 750 mg Premix Inj 150 150 / 150 ML @ 100 mls/hr IV.SIG Q24H [facility] Rx#:[id number] KCl 20 mEq Premix Inj 20 meq In 200 / 200 100 ml @ 50 mls/hr IV.SIG Q2H [facility] Rx#:[id number] Intake (Blood Product) Amt 0 / 0 400 / 400 Rbc As-3 Leukoreduced Unit 0 / 0 400 / 400 [id number] Rbc As-3 Leukoreduced Unit 0 / 0 [id number] Other: # Voids 3 Date of Last Bowel Movement 01/22/18 # Bowel Movements 6 Narrative: GENERAL: Awake alert and oriented 3 talkative and cooperative SKIN: Warm and dry. HEAD: Atraumatic. Normocephalic. EYES: Pupils equal and round. No scleral icterus. No injection or drainage. EOMI ENT: No nasal bleeding or discharge. Mucous membranes pink and moist. Tongue is midline NECK: Trachea midline. No JVD. Neck is supple CARDIOVASCULAR: Regular rate and rhythm. S1-S2 no S3 or S4 RESPIRATORY: No accessory muscle use. Clear to auscultation. Breath sounds equal bilaterally. GASTROINTESTINAL: Abdomen soft, non-tender, nondistended. Hepatic and splenic margins not palpable. Mild midepigastric tenderness MUSCULOSKELETAL: Extremities without clubbing, cyanosis, or edema. No obvious deformities. NEUROLOGICAL: Awake and alert. No obvious cranial nerve deficits. Motor grossly within normal limits. Five out of 5 muscle strength in the arms and legs. Normal speech. PSYCHIATRIC: Appropriate mood and affect; insight and judgment normal. Results Procedures completed during hospitalization: EGD 01-22 GASTRITIS PROTONIX COLONOSCOPY PROCEDURE REPORT EXAM DATE: 01/23/2018 PATIENT NAME: Gillian Taylor MR #: [id number] BIRTHDATE: 1970 ENDOSCOPIST: Luca Grajeda MD ORDER #: [id number] SYSTEM CONSULTANT: Sophie Montalvo and Jaja Boggs STATUS: inpatient INDICATIONS: The patient is a 47 yr old female here for a colonoscopy due to iron deficiency anemia PROCEDURE PERFORMED: Colonoscopy with biopsy MEDICATIONS: None and Per Anesthesia. PREP QUALITY: The [place] Bowel Prep Score was Right colon 3, Mid colon 2, and Left colon 2. Total = 7. PREP TYPE:GoLytely ESTIMATED BLOOD LOSS: None CONSENT: The patient understands the risks and benefits of the procedure and understands that these risks include, but are not limited to: sedation, allergic reaction, infection, perforation and/or bleeding. Alternative means of evaluation and treatment include, among others: physical exam, x-rays, and/or surgical intervention. The patient elects to proceed with this endoscopic procedure. medical equipment was checked for proper function. Hand hygiene and appropriate measures for infection prevention was taken. After the risks, benefits and alternatives of the procedure were thoroughly explained, Informed consent was verified, confirmed and timeout was successfully executed by the treatment team. A digital exam revealed external hemorrhoids The Pentax EC-[id number] endoscope was introduced through the anus and advanced to the cecum, which was identified by both the appendix and ileocecal valve. The instrument was then slowly withdrawn as the colon was fully examined. COLON FINDINGS: A polypoid shaped sessile polyp ranging between 3-5mm in size was found in the sigmoid colon. A polypectomy was performed with cold forceps. The resection was complete and the polyp tissue was completely retrieved. Retroflexed views revealed internal hemorrhoids and Retroflexed views revealed medium internal hemorrhoids The scope was then completely withdrawn from the patient and the procedure terminated. PROCEDURE WITHDRAWAL TIME:6minutes ADVERSE EVENTS: There were no complications. IMPRESSIONS: 1. A sessile polyp ranging between 3-5mm in size was found in the sigmoid colon; polypectomy was performed with cold forceps 2. Retroflexed views revealed internal hemorrhoids 3. Retroflexed views revealed medium internal hemorrhoids 4. Revealed external hemorrhoids RECOMMENDATIONS: 1. Await biopsy results. Biopsy results will not be ready for 7-10 days. If you don't hear from us in two weeks, call our office for results. 2. Continue surveillance 3. Yearly hemoccult RECALL: Return 5 years Colonoscopy Pending studies at discharge: Pending at discharge 01/23/18 14:42 Surgical [PTH] Routine Labs on day of discharge: Labs from last 24 hours 01/23/18 01/23/18 01/22/18 04:58 04:58 13:19 WBC 7.4 RBC 2.98 L Hgb 9.6 L D Hct 27.3 L MCV 91.3 MCH 32.3 MCHC 35.3 RDW 13.9 Plt Count 213 MPV 7.8 Neut % (Auto) 55.6 Lymph % (Auto) 34.4 [place] % (Auto) 8.3 H Eos % (Auto) 1.4 Baso % (Auto) 0.3 Neut # (Auto) 4.1 Lymph # (Auto) 2.6 [place] # (Auto) 0.6 Eos # (Auto) 0.1 Baso # (Auto) 0.0 WBC Differential . Differential Comment Auto diff final Sodium 144 Potassium 3.0 L Chloride 111 H Carbon Dioxide 23.4 Anion Gap 10 BUN 8 Creatinine 0.68 Estimated GFR Greater than 89 Random Glucose 85 Hemoglobin A1c Calcium 7.6 L Phosphorus 2.2 L Magnesium 2.2 Total Bilirubin 0.8 AST 12 L ALT 13 Alkaline Phosphatase 40 L Total Protein 5.7 L Albumin 3.0 L D MTS Gel Crossmatch See Detail 01/22/18 04:10 WBC RBC Hgb Hct MCV MCH MCHC RDW Plt Count MPV Neut % (Auto) Lymph % (Auto) [place] % (Auto) Eos % (Auto) Baso % (Auto) Neut # (Auto) Lymph # (Auto) [place] # (Auto) Eos # (Auto) Baso # (Auto) WBC Differential Differential Comment Sodium Potassium Chloride Carbon Dioxide Anion Gap BUN Creatinine Estimated GFR Random Glucose Hemoglobin A1c 5.4 Calcium Phosphorus Magnesium Total Bilirubin AST ALT Alkaline Phosphatase Total Protein Albumin MTS Gel Crossmatch Discharge Plan - Discharge Disposition Patient Disposition: 01 Discharge Home - Discharge Condition Condition: Good - Discharge Order Discharge Orders: Discharge Order (Routine); Ordered 01/23/18 Ordered By: Ki Mott - Discharge Details Anticipated Discharge Date: 01/23/18 Discharge Comment: DC TO HOME - Physicians Team Primary Care Provider: UNKNOWN, Attending Provider: Ki Mott Other Providers: Luca Grajeda MD - Rxs /Orders / Referrals /Forms Prescriptions: New albuterol sulfate 90 mcg/actuation Hfa Aerosol Inhaler 2 puff INHALATION Q6H Qty: 1 RF: 0 guaifenesin [Mucinex] 600 mg Tablet Extended Release 12hr 600 mg PO BID Qty: 60 RF: 0 levofloxacin [Levaquin] 750 mg Tablet 750 mg PO DAILY Qty: 5 RF: 0 pantoprazole [Protonix] 20 mg Tablet,Delayed Release (Dr/Ec) 40 mg PO BID Qty: 60 RF: 0 potassium chloride 20 mEq Tablet Extended Release 20 meq PO DAILY Qty: 30 RF: 0 Continue triamterene-hydrochlorothiazid 37.5-25 mg Capsule 1 cap PO DAILY Qty: 30 Referrals: Luca Graejda MD [Physician] - See Instructions (2 WEEKS) UNKNOWN, [Primary Care Provider] - See Instructions (FOLLOW UP PCP NEXT WEEK) - Discharge Instructions Patient Printed Instructions: Colonoscopy (DC)
[2018-01-23] MEDS ORDERED: Potassium Bicarbonate 25 MEQ Effervescent Tablet PO ONE (16:00)
[2018-01-23] MEDS: Potassium Chlor 10 mEq Premix 10 MEQ/100 ML PIGGYBACK IV.SIG SCH (17:12)
== END 2018-01-23 18:48 | disposition home or self-care (01) ==
LOC: NEPFCDU 23:55 → NEDDLT 23:55
PROVIDERS: ADMIT Hospitalist; ATTEND Hospitalist
PROC: PANENDO (2018-01-22 14:37)
PROC: COLONOS (2018-01-23 10:50)